=== PATIENT | female | born 1945 ===

== ENCOUNTER 2022-04-03 11:15 | Inpatient (IN) | payer OTHER ==
[~2022-04-03] VITALS: Ht 165.1 cm; Wt 55.8 kg
[2022-04-03] MEDS ORDERED: GLIMEPIRIDE2 M1 PO (11:21)
[2022-04-03] MEDS ORDERED: LOSARTAN POTASS50 MG PO (11:22)
[2022-04-06] MEDS ORDERED: PANTOPRAZOLE SO40 MG (13:48)
[2022-04-06] MEDS ORDERED: LOSARTAN-HCTZ1 EACH (13:48)
[2022-04-06] MEDS ORDERED: FAMOTIDINE40 MG (13:48)
[2022-04-06] MEDS ORDERED: GLIMEPIRIDE4 M1 (13:48)
[2022-04-06] MEDS ORDERED: VITAMIN C1000 MG (13:48)
== END 2022-04-07 10:29 | disposition home or self-care (01) | DRG 329 ==
LOC: SURH 04-04 07:13 → O/R 04-04 07:13 → SURG 04-04 10:30 → SURH 04-04 14:20
PROVIDERS: ADMIT Colon & Rectal Surgery; ATTEND Colon & Rectal Surgery
PROC: 0DBP4ZZ Excision of Rectum, Percutaneous Endoscopic Approach (ICD-10-PCS; 2022-04-04)
PROC: 0DJD8ZZ Inspection of Lower Intestinal Tract, Via Natural or Artificial Opening Endoscopic (ICD-10-PCS; 2022-04-04)
PROC: 0DTN4ZZ Resection of Sigmoid Colon, Percutaneous Endoscopic Approach (ICD-10-PCS; principal; 2022-04-04 10:30)
DX: K57.20 Diverticulitis of large intestine with perforation and abscess without bleeding (principal); K65.8 Other peritonitis; K92.1 Melena; K66.0 Peritoneal adhesions (postprocedural) (postinfection); Z20.822 Contact with and (suspected) exposure to COVID-19